=== PATIENT | male | born 1955 | race Caucasian/White ===

== ENCOUNTER 2020-02-22 06:46 | Outpatient (NON) | payer OTHER, SELFPAY ==
[2020-02-22 22:57] LABS: SARS-CoV-2 RNA PCR Positive
== END 2020-02-22 06:47 ==
PROVIDERS: PCP Family Medicine; Visit Provider Family Medicine
DX: U07.1 COVID-19 (principal)
CPT/HCPCS: 87635; C9803; U0003

== ENCOUNTER → 2021-03-24 10:40 | Outpatient (CLI) | payer MEDICARE, SELFPAY ==
--- NOTE | ~2021-03-24 | XR_ITS ---
EXAMINATION: XR chest 2V DATE: 03/24/2021 11:01 INDICATION: Shortness of breath TECHNIQUE: PA and lateral views of the chest are obtained. COMPARISON: None available FINDINGS: Cardiomegaly is noted. There appears to be a mild diffuse interstitial pattern. No pleural effusion or pneumothorax is identified. There are bridging osteophytes at multiple levels in the spin e, consistent with diffuse idiopathic skeletal hyperostosis (DISH). IMPRESSION: 1. Cardiomegaly with likely mild pulmonary edema. Reviewed, dictated and finalized at location B. [employer]
== END ==
PROVIDERS: PCP Internal Medicine; Visit Provider Internal Medicine
DX: R06.02 Shortness of breath (principal); I51.7 Cardiomegaly
CPT/HCPCS: 71046

== ENCOUNTER 2024-08-01 08:04 | Outpatient (NON) | payer MEDICARE, SELFPAY | END 2024-08-01 08:05 | disposition home or self-care (01) | LOC: ANHLAB 08-02 08:09 | PROVIDERS: PCP Internal Medicine; Visit Provider Plastic Surgery | DX: L72.3 Sebaceous cyst (principal) | CPT/HCPCS: 88305 ==